=== PATIENT | female | born 1985 ===

== ENCOUNTER 2019-05-19 09:30 | Inpatient (IN) | payer OTHER ==
[~2019-05-19] VITALS: Ht 160 cm; Wt 66.7 kg
== END 2019-05-23 13:07 | disposition home or self-care (01) | DRG 807 ==
LOC: O/R 09:30 → LDR 05-21 06:37 → OB/GYN 05-21 06:37
PROVIDERS: ADMIT Obstetrics & Gynecology
PROC: 10E0XZZ Delivery of Products of Conception, External Approach (ICD-10-PCS; principal; 2019-05-21)
PROC: 0HQ9XZZ Repair Perineum Skin, External Approach (ICD-10-PCS; 2019-05-21)
PROC: 3E033VJ Introduction of Other Hormone into Peripheral Vein, Percutaneous Approach (ICD-10-PCS; 2019-05-21)
PROC: 10907ZC Drainage of Amniotic Fluid, Therapeutic from Products of Conception, Via Natural or Artificial Opening (ICD-10-PCS; 2019-05-21)
PROC: 4A1HXCZ Monitoring of Products of Conception, Cardiac Rate, External Approach (ICD-10-PCS; 2019-05-21)
DX: O70.0 First degree perineal laceration during delivery (principal); Z37.0 Single live birth; Z3A.39 39 weeks gestation of pregnancy